=== PATIENT | female | born 1940 | race Caucasian/White ===

== ENCOUNTER → 2020-12-30 | Day surgery (SDC) | payer OTHER ==
[~2020-12-30] VITALS: Ht 165.1 cm; Wt 61.2 kg
[~2020-12-30] MED LIST: ALPHA LIPOIC A600 MG PO; CO Q-1010 MG PO; DIGOXIN125 MCG PO; DONEPEZIL HCL10 MG PO; HYDROCODONE-AC1 EACH PO; MOEXIPRIL HCL15 MG PO; OCUVITE WITH L1 EACH PO; OMEPRAZOLE20 M1 PO; PRAMIPEXOLE DI0.5 MG PO; PRAVASTATIN SOD80 MG PO; PREVAGAN PO; SERTRALINE HCL100 MG PO; SOTALOL80 MG PO; TRIAMTERENE-HC1 EAC4 PO; VITAMIN B COMP1 EACH PO; VITAMIN B-12500 MCG PO; VITAMIN C1000 MG PO; VITAMIN D3125 MCG PO; XARELTO20 MG PO
[2020-12-30 09:44] LABS: HEMOGLOBIN 12.6 gm/dl (12.3-15.3); RED BLOOD COUNT 4.38 M/UL (4.00-5.10); WHITE BLOOD COUNT 7.2 K/UL (4.5-11.0)
[2020-12-30 10:03] LABS: BUN/CREATININE RATIO 21 (0-10)
== END | disposition home or self-care (01) ==
LOC: OR 08:57
PROVIDERS: Orthopaedic Surgery
DX: S82.842A Displaced bimalleolar fracture of left lower leg, initial encounter for closed fracture (principal); I10 Essential (primary) hypertension; K21.9 Gastro-esophageal reflux disease without esophagitis; Z53.29 Procedure and treatment not carried out because of patient's decision for other reasons; Z20.822 Contact with and (suspected) exposure to COVID-19; Z79.899 Other long term (current) drug therapy; Z95.0 Presence of cardiac pacemaker; X58.XXXA Exposure to other specified factors, initial encounter
CPT/HCPCS: 80048; 85027; 93005; J0690; J7120